=== PATIENT | male | born 1990 | race Two or more races ===

== ENCOUNTER 2018-08-17 14:09 | Emergency (ER) | payer OTHER ==
[~2018-08-17] VITALS: Ht 172.7 cm; Wt 81.6 kg
[2018-08-17 14:16] VITALS: BP 133/76
[2018-08-17] MEDS ORDERED: Tetracaine 0.5% Opth 4ml Soln RIGHT EYE ONE (15:00)
[2018-08-17] MEDS ORDERED: Morgan Lens TOPIC ONE (15:00)
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
[2018-08-17] MEDS ORDERED: Fluorescein Strips BOTH EYES ONE (15:30)
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
[2018-08-17] MEDS ORDERED: OCUFLOX5 ML OP (16:31)
[2018-08-17] MEDS ORDERED: TYLENOL EXTRA500 MG ORAL (16:31)
[2018-08-17 17:11] VITALS: BP 133/76
--- NOTE | 2018-08-17 17:12 | NUR ---
ER DISCHARGE NOTE:pt. had visual acuity done, then both eyes were irrigated with NS Patient is cleared to be discharged per ERMD, pt is aox4, on room air, with stable vital signs. pt was given dc and prescription instructions, pt was able to verbalize understanding, pt is able to ambulate with steady gait. pt took all belongings.
== END 2018-08-17 16:00 | disposition home or self-care (01) ==
LOC: EMR 15:09
DX: T26.62XA Corrosion of cornea and conjunctival sac, left eye, initial encounter (principal); T26.61XA Corrosion of cornea and conjunctival sac, right eye, initial encounter; Y92.9 Unspecified place or not applicable
CPT/HCPCS: 99282